=== PATIENT | female | born 1965 | race Hispanic/Latino ===

== ENCOUNTER 2018-02-12 12:14 | Emergency (ER) | payer OTHER, SELFPAY ==
[2018-02-12] MEDS ORDERED: Ketorolac Tromethamine 60 MG/2 ML VIAL ONE (12:56)
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
== END 2018-02-12 13:05 | disposition home or self-care (01) ==
LOC: ERS 12:14
DX: S16.1XXA Strain of muscle, fascia and tendon at neck level, initial encounter (principal); S50.02XA Contusion of left elbow, initial encounter; E03.9 Hypothyroidism, unspecified; I10 Essential (primary) hypertension; V49.40XA Driver injured in collision with unspecified motor vehicles in traffic accident, initial encounter
CPT/HCPCS: 71045; 96372; J1885

== ENCOUNTER 2018-03-15 12:42 | Emergency (ER) | payer OTHER, SELFPAY ==
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
[2018-03-15] MEDS ORDERED: Ketorolac Tromethamine 60 MG/2 ML VIAL ONE (14:45)
== END 2018-03-15 15:06 | disposition home or self-care (01) ==
LOC: ERS 12:42
DX: M25.522 Pain in left elbow (principal); E03.9 Hypothyroidism, unspecified; I10 Essential (primary) hypertension; Z79.899 Other long term (current) drug therapy
CPT/HCPCS: 96372; J1885